=== PATIENT | male | born 1970 | race Caucasian/White ===

== ENCOUNTER → 2016-12-14 | Outpatient (CLI) | payer BC ==
[~2016-12-14] VITALS: Ht 170.2 cm; Wt 108.0 kg
[~2016-12-14] MED LIST: CETI10TA PO; FISH120012 PO; FLOM5CAP PO; FLON1SPR; GABA300C3 PO; LIDOCAINE 2% INJ 100 MG/5 ML SDV (FOR ANES.) As Ordered ONE; MELO15TA4 PO; NS 1,000 ML IV SCH; PROPOFOL 200 MG/20 ML VIAL As Ordered ONE
--- NOTE | 2016-12-14 12:51 | ROOR ---
Patient Name: Gamal Vaz Procedure Date: 12/14/2016 12:06 PM Date of : 1970 Age: 46 Room: [facility] Gender: Male Note Status: Finalized Procedure: Colonoscopy Indications: High risk colon cancer surveillance: Personal history of colonic polyps, Family history of colon cancer in a first-degree relative ([id number]) Providers: Jonny SMITH MD Referring MD: ROSE MARIE BHARDWAJ MD Requesting Provider: Medicines: Monitored Anesthesia Care Complications: No immediate complications. Procedure: Pre-Anesthesia Assessment: - The heart rate, respiratory rate, oxygen saturations, blood pressure, adequacy of pulmonary ventilation, and response to care were monitored throughout the procedure. The Colonoscope was introduced through the anus and advanced to the cecum, identified by appendiceal orifice and ileocecal valve. The colonoscopy was technically difficult and complex due to the patient's body habitus. Successful completion of the procedure was aided by changing the patient to a supine position and using manual pressure. The patient tolerated the procedure well. The quality of the bowel preparation was good. Findings: The perianal and digital rectal examinations were normal. Two sessile polyps were found in the hepatic flexure and distal ascending colon. The polyps were 3 to 5 mm in size. These polyps were removed with a cold snare. Resection and retrieval were complete. The exam was otherwise without abnormality on direct and retroflexion views. (EXAM: Complete, PREP:Adequate) Impression: - Two 3 to 5 mm polyps at the hepatic flexure and in the distal ascending colon, removed with a cold snare. Resected and retrieved. - The examination was otherwise normal on direct and retroflexion views. - (EXAM: Complete, PREP:Adequate) Recommendation: - Repeat colonoscopy in 3 years for adenoma surveillance. Jonny Smith MD Jonny SMITH MD 12/14/2016 12:50:30 PM This report has been signed electronically. Number of Addenda: 0 Note Initiated On: 12/14/2016 12:06 PM Estimated Blood Loss: Estimated blood loss: none.
[2016-12-14 13:15] VITALS: BP 144/77
== END | disposition home or self-care (01) ==
LOC: M OPP 10:47
PROVIDERS: ATTEND Internal Medicine Gastroenterology
DX: Z12.11 Encounter for screening for malignant neoplasm of colon (principal); D12.3 Benign neoplasm of transverse colon; R06.83 Snoring; M19.90 Unspecified osteoarthritis, unspecified site; G47.30 Sleep apnea, unspecified; N40.0 Benign prostatic hyperplasia without lower urinary tract symptoms; F17.200 Nicotine dependence, unspecified, uncomplicated; F17.228 Nicotine dependence, chewing tobacco, with other nicotine-induced disorders; Z80.0 Family history of malignant neoplasm of digestive organs; Z79.899 Other long term (current) drug therapy; Z79.1 Long term (current) use of non-steroidal anti-inflammatories (NSAID); Z91.040 Latex allergy status

== ENCOUNTER → 2020-01-18 | Outpatient (REF) | payer BC ==
[~2020-01-18] MED LIST changes: +FLOM0.4C39 PO; -FLOM5CAP PO; +GABA-843 PO; -GABA300C3 PO; -LIDOCAINE 2% INJ 100 MG/5 ML SDV (FOR ANES.) As Ordered ONE; +MELO15TA28 PO; -MELO15TA4 PO; -NS 1,000 ML IV SCH; -PROPOFOL 200 MG/20 ML VIAL As Ordered ONE
== END ==
LOC: M SMT 13:19
PROVIDERS: ATTEND Urology
DX: Z30.09 Encounter for other general counseling and advice on contraception (principal)

== ENCOUNTER → 2020-04-30 | Outpatient (CLI) | payer BC ==
[~2020-04-30] MED LIST changes: +BLAC1CAP2 PO; +CBD OIL PO; +MULTCAP PO; +PROBCAP14 PO
== END ==
LOC: M LABSMTC 09:18
PROVIDERS: ATTEND Anesthesiology
DX: Z03.818 Encounter for observation for suspected exposure to other biological agents ruled out (principal); Z11.59 Encounter for screening for other viral diseases
CPT/HCPCS: C9803; U0003

== ENCOUNTER 2020-05-03 10:25 | Day surgery (SDC) | payer BC ==
[~2020-05-03] VITALS: Ht 167.6 cm; Wt 109.7 kg
[~2020-05-03 10:25] MED LIST changes: +GABA-282 PO; -GABA-843 PO; +NS 1,000 ML IV ONE
[2020-05-03] MEDS ORDERED: LIDOCAINE 2% 100MG/5ML SDV (FOR ANES.) As Ordered ONE (11:58)
[2020-05-03] MEDS ORDERED: propofoL 200 MG/20 ML VIAL As Ordered ONE (11:58)
--- NOTE | 2020-05-03 12:41 | ROOR ---
Patient Name: Gamal Vaz Procedure Date: 05/03/2020 12:15 PM Date of : 1970 Age: 49 Room: [facility] Gender: Male Note Status: Finalized Procedure: Colonoscopy Indications: High risk colon cancer surveillance: Personal history of colonic polyps, Family history of colon cancer in a first-degree relative before age 60 years Providers: Jonny SMITH MD Referring MD: ROSE MARIE BHARDWAJ MD Requesting Provider: Medicines: Monitored Anesthesia Care Complications: No immediate complications. Procedure: Pre-Anesthesia Assessment: - The heart rate, respiratory rate, oxygen saturations, blood pressure, adequacy of pulmonary ventilation, and response to care were monitored throughout the procedure. The Colonoscope was introduced through the anus and advanced to the cecum, identified by appendiceal orifice and ileocecal valve. The colonoscopy was performed without difficulty. The patient tolerated the procedure well. The quality of the bowel preparation was good. Findings: Hemorrhoids were found on perianal exam. Mild sigmoid diverticulosis and small internal hemorrhoids. The exam was otherwise without abnormality. Impression: - Hemorrhoids found on perianal exam. - Mild sigmoid diverticulosis and small internal hemorrhoids. - The colon is otherwise normal. - No specimens collected. Recommendation: - Repeat colonoscopy in 5 years for screening purposes. Jonny Smith MD Jonny SMITH MD 05/03/2020 12:40:59 PM Electronically signed by Jonny SMITH MD Number of Addenda: 0 Note Initiated On: 05/03/2020 12:15 PM Estimated Blood Loss: Estimated blood loss: none.
[2020-05-03 13:10] VITALS: BP 118/61
== END 2020-05-03 13:30 | disposition home or self-care (01) ==
LOC: M OPP 10:25
PROVIDERS: ATTEND Internal Medicine Gastroenterology
DX: Z12.11 Encounter for screening for malignant neoplasm of colon (principal); Z86.010 Personal history of colon polyps; Z80.0 Family history of malignant neoplasm of digestive organs; K64.8 Other hemorrhoids; F17.220 Nicotine dependence, chewing tobacco, uncomplicated; Z79.899 Other long term (current) drug therapy; Z91.040 Latex allergy status; Z88.8 Allergy status to other drugs, medicaments and biological substances

== ENCOUNTER → 2020-05-17 | Outpatient (REF) | payer BC ==
[~2020-05-17] MED LIST changes: -GABA-282 PO; +GABA-843 PO; -NS 1,000 ML IV ONE
[2020-05-17 10:29] LABS: SEMEN APPEARANCE OPAQUE (OPAQUE); SEMEN VISCOSITY LIQUID (LIQUID); SEMEN VOLUME 5.8 ml (2.0-5.0); WBC CONCENTRATION <=1 M/ml (<=1 M/ml)
== END ==
LOC: M SMT 10:07
PROVIDERS: ATTEND Urology
DX: Z30.09 Encounter for other general counseling and advice on contraception (principal)

== ENCOUNTER 2024-07-23 09:43 | Day surgery (SDC) | payer BC ==
[~2024-07-23] VITALS: Ht 167.6 cm; Wt 110.0 kg
[~2024-07-23 09:43] MED LIST changes: +AZEL1SPR3; +CLAR10CA3 PO; +GABA-282 PO; +GABA-284 PO; -GABA-843 PO; +METF-838 PO; +TAMS1CAP17 PO; +THERTAB52 PO; +TRUL10IN SC
[2024-07-23] MEDS ORDERED: LR 1,000 ML IV SCH (11:00)
[2024-07-23] MEDS ORDERED: KETOROLAC 60MG 2ML VIAL As Ordered ONE (11:41)
[2024-07-23] MEDS ORDERED: MIDAZOLAM INJ 2MG/2ML VIAL As Ordered ONE (11:41)
[2024-07-23] MEDS ORDERED: ONDANSETRON 4MG 2ML VIAL As Ordered ONE (11:41)
[2024-07-23] MEDS ORDERED: propofoL 200 MG/20 ML VIAL As Ordered ONE (11:41)
[2024-07-23] MEDS ORDERED: LIDOCAINE 2% 100MG/5ML SDV (FOR ANES.) As Ordered ONE (11:41)
[2024-07-23] MEDS: ceFAZolin SOD 2 GM in IV 1 EA IV ONE (12:27)
[2024-07-23] MEDS ORDERED: OXYC1TAB23 PO (12:34)
[2024-07-23 13:25] VITALS: BP 141/70; TEMP 97.2; O2SAT 97
== END 2024-07-23 13:32 | disposition home or self-care (01) ==
LOC: M SDC 09:43
PROVIDERS: ATTEND Urology
DX: N20.0 Calculus of kidney (principal); E11.9 Type 2 diabetes mellitus without complications; G47.33 Obstructive sleep apnea (adult) (pediatric); Z87.891 Personal history of nicotine dependence; N40.0 Benign prostatic hyperplasia without lower urinary tract symptoms; Z79.899 Other long term (current) drug therapy; Z88.0 Allergy status to penicillin; Z91.040 Latex allergy status
CPT/HCPCS: 50590; 74018; J0690; J1885; J2250; J2405

== ENCOUNTER → 2024-08-10 | Outpatient (REF) | payer BC ==
[~2024-08-10] MED LIST changes: +OXYC1TAB23 PO
== END ==
LOC: M SMT 12:19
PROVIDERS: ATTEND Physician Assistant
DX: Z48.816 Encounter for surgical aftercare following surgery on the genitourinary system (principal)

== ENCOUNTER → 2025-08-23 | Outpatient (CLI) | payer BC ==
[~2025-08-23] MED LIST changes: -FLOM0.4C39 PO; +GABA-1172 PO; -GABA-282 PO; +TAMS-18 PO
== END ==
LOC: M RAD 10:44
PROVIDERS: ATTEND Physician Assistant
DX: N20.0 Calculus of kidney (principal)